=== PATIENT | female | born 1995 | race Caucasian/White ===

== ENCOUNTER 2017-07-08 14:17 | Outpatient (CLI) | payer OTHER ==
--- NOTE | 2017-07-08 15:57 | MRI ---
LUMBAR SPINE MRI WITHOUT IV CONTRAST: HISTORY: A 22-year-old female with low back pain and right hip pain since May following a fall. FINDINGS: Multiplanar, multisequence MRI examination of the lumbar spine was performed. There is a transitional vertebra at the lumbosacral level which, for the sake of this dictation, will be referred to as a partially lumbarized S1. The conus medullaris region is unremarkable terminating at L2. The L1-L2, L2-L3, L3-L4, and L4-L5 di sk levels appear unremarkable. At L5-S1, there is some very mild disk bulging without evidence for s ignificant central canal, lateral recess, or foraminal stenosis. S1-S2 level is unremarkable. IMPRESSION: Transitional vertebra at the lumbosacral spine which, for the sake of this dictation, will be referre d to as a partially lumbarized S1. Disk herniation or significant canal or foraminal stenosis. No a bnormal marrow signal or other significant acute process. POS: SIL
== END 2017-07-08 14:18 | disposition home or self-care (01) ==
LOC: SCSMRI 14:17
PROVIDERS: ATTEND Orthopaedic Surgery
DX: M54.5 Low back pain (principal); Q76.49 Other congenital malformations of spine, not associated with scoliosis
CPT/HCPCS: 72148